=== PATIENT | male | born 1945 | race Caucasian/White ===

== ENCOUNTER 2020-02-19 16:45 | Emergency (ER) | payer MEDICARE ==
[~2020-02-19] VITALS: Ht 172.7 cm; Wt 70.3 kg
[2020-02-19] MEDS ORDERED: LIDOCAINE HCL 1% LOCAL INJ 20 ML VIAL INJ STA (16:56)
[2020-02-19] MEDS ORDERED: TETANUS/DIPHTHERIA TOX ADULT 0.5 ML SYR IM ONE (17:00)
== END 2020-02-19 18:53 | disposition home or self-care (01) ==
LOC: ER 17:00
DX: S61.211A Laceration without foreign body of left index finger without damage to nail, initial encounter (principal); W27.8XXA Contact with other nonpowered hand tool, initial encounter; I10 Essential (primary) hypertension
CPT/HCPCS: 12001; 73130; 90471; 90714; 99283; J2001